=== PATIENT | male | born 1955 | race Caucasian/White ===

== ENCOUNTER 2024-12-03 01:18 | Emergency (ER) | payer MEDICARE, SELFPAY ==
[2024-12-03 01:20] VITALS: BP 142/65; PULSE 59; RESP 16; TEMP 36.4; O2SAT 97; BMI 34.9
--- NOTE | 2024-12-03 01:22 | EDS_ITS ---
HPI History of Present Illness Chief Complaint: Chest Pain PFS PFS Medical History no medical history Allergy/AdvReac Type Severity Reaction Status Date / Time No Known Allergies Allergy Verified 12/03/24 01:20 Family History no significant family his Surgical History no surgical history Social History Smoking Status: Never smoker EXAM Physical Exam Const Vital Signs: 12/03/24 01:20 12/03/24 01:28 12/03/24 01:40 Temperature 97.6 F L Temperature Source Oral Pulse Rate 59 L Respiratory Rate 16 Respiratory Effort Normal Non-Labored Blood Pressure 142/65 H Blood Pressure Mean 90 Pulse Ox 97 96 Oxygen Delivery Method Room Air Room Air 12/03/24 01:54 12/03/24 03:00 12/03/24 04:00 Temperature Temperature Source Pulse Rate 63 55 L 57 L Respiratory Rate 18 16 16 Respiratory Effort Blood Pressure 135/64 H 124/61 H 121/84 H Blood Pressure Mean 87 82 96 Pulse Ox 96 98 98 Oxygen Delivery Method Room Air Room Air Room Air 12/03/24 04:43 Temperature 98.1 F Temperature Source Pulse Rate 57 L Respiratory Rate 16 Respiratory Effort Blood Pressure 134/67 H Blood Pressure Mean 89 Pulse Ox 99 Oxygen Delivery Method Heart Score History: Slightly/Non-Suspicious ECG: Nonspecific Repolarization Age: >/= 65 years Risk Factors: >/= 3 Risk Factors or History of CAD Troponin: </= Normal Limit Score: 5 MDM MDM MDM Narrative Medical decision making narrative: HISTORY OF PRESENT ILLNESS: Chief complaint: Chest pain 69-year-old male with past medical history significant for hyperlipidemia, type II diabetes, hypertension, SHERRON on CPAP presents with chest pain. He states his pressure/sharp. Notes it awoke him from sleep. It is not burning ripping or tearing. Notes it lasted for approximately 5 to 10 minutes then resolved. No chest pain at this time. He notes associated dizziness, nausea but denies associated shortness of breath. Denies recent leg swelling. Denies any exertional chest pain or decreased exercise tolerance recently. Denies unilateral leg swelling. Denies any other PE risk factors (the patient denies recent surgery in the last 4 weeks or immobilization in the last 3 days, denies previous diagnosis of DVT or PE, hemoptysis, unilateral leg swelling or maligna ncy with treatment the last 6 months or palliative. No estrogen use noted.). Patient denies sudden onset of pain, no tearing sensation, no migratory symptoms, no new numbness, weakness or loss of sensation. Patient denies family history or personal history of Connective tissue disorders (Marfan's Syndrome, Julia Danlos etc). Denies recent cough fever chills. Denies recent bleeding diathesis. Denies abdominal pain. REVIEW OF SYSTEMS: Pertinent positives: Chest pain Pertinent negatives: As per HPI PHYSICAL EXAM: Nursing triage notes reviewed, Vital signs reviewed Constitutional: please see [facility] HENT: MMM Eyes: Pupils equal round and reactive to light, Extraocular muscles intact Neck: No stridor, no JVD, full neck ROM Lungs: Clear to auscultation, No wheezing or rales. No increased work of breathing, no conversational dyspnea, no accessory muscle use, no nasal flaring. No respiratory distress noted Heart: Regular rate and rhythm, No murmurs, No rubs and No gallops, 2+ distal pulses (radial, femoral, posterior tibial) in all extremities Abdomen: Soft, there is no tenderness, rigidity, rebound or guarding, no obvious peritoneal signs, no palpable pulsatile abdominal masses, no auscultated abdominal bruit : No CVAT Extremities: No edema Neuro: No new focal neurological deficits, cranial nerves II through XII intact, 5/5 strength in all present extremities. Intact sensation to light touch in all present extremities, 2+ reflexes bilateral patella tendons. Skin: No rash or lesions noted MEDICAL DECISION MAKING: Chief Complaint: please see HPI External records reviewed: No records noted in [facility]. Reviewed Clinisync Factors affecting care: as per [facility] Social determinants of health: none History obtained from others: EMS Consults: none [facility] Narrative: Patient was initially hemodynamically stable, afebrile and nontoxic-appearing. No focal cardiopulmonary abnormalities. No stigmata of VTE or aortic dissection initial exam. I considered the following differential diagnosis: ACS, arrhythmia, anemia, GI etiology, pneumothorax, pericarditis, PE, aortic dissection I obtained a broad lab and imaging work to further determine if the patient was suffering from a life-threatening etiology. Patient received aspirin per EMS. ALL IMAGES (IF OBTAINED) HAVE BEEN PERSONALLY REVIEWED AND INTERPRETED BY MYSELF. EKG with sinus bradycardia rate 59, left axis deviation, normal intervals, no STEMI I have personally reviewed the patient's chest x-ray. Chest x-ray is unremarkable for pulmonary edema, pneumothorax, pneumonia or focal cardiopulmo nary abnormality. No sign of free air under the diaphragm suggest ruptured viscus. High-sensitivity troponin is negative, no evidence of myocardial ischemia CBC without leukocytosis, severe anemia, no thrombocytopenia. BMP without evidence of significant electrolyte abnormalities, no anion gap, no acute kidney injury. Delta troponin negative essentially ruling out ACS per [facility] high-sensitivity troponin protocol On re-evaluation patient remains chest pain-free. Remains hemodynamically stable. Etiology uncertain however with 2 negative high-sensitivity troponins and likely is ACS is less likely. Patient's risk is relatively high given advanced age, diabetes, hypertension and hyperlipidemia. Heart score 5. Discussed risk and benefits/had a shared decision-making discussion with the patient. Discussed risk and benefit of hospitalization versus discharge with close outpatient follow-up. Patient was alert and orient x 3 and had capacity to make his own medical decisions and chose to forego admission at this time and lieu of discharge with close PCP follow-up for outpatient stress test. I considered VTE, aortic dissection patient history and physical exam not consistent with PE or aortic dissection. Strict return precautions were discussed. Daily baby aspirin initiation was discussed. The patient and/or family, caregivers express understanding. The patient and/or family, caregivers agrees with the plan. Shared decision making: I will have a discussion with the patient and or visitors regarding risk/benefits of further testing or admission. They will be made aware of of the risk/benefits inherent in this decision they will be given the opportunity to voice understanding. Total critical care time today provided was at least 0 minutes. This excludes separately billable procedures. Critical care time (if documented) is secondary to the patient having high probability of clinically significant/life threatening deterioration in the patient's condition which required my urgent intervention. Impression: 1. Chest pain 2. History of type 2 diabetes 3. History of hyperlipidemia Dispo: discharge home This note was generated with [employer] dictation software. It may contain incorrect words, spelling, and punctuation that were not noted in review of the chart prior to signing. Lab Data Labs: Laboratory Results - last 24 hr 12/03/24 12/03/24 01:00 03:10 WBC 8.2 RBC 4.71 Hgb 15.2 Hct 44.7 MCV 94.9 H MCH 32.3 H MCHC 34.0 RDW Std Deviation 45.3 H RDW Coeff of Walt 13.0 Plt Count 256 MPV 10.3 Immature Gran % (Auto) 0.600 Neut % (Auto) 49.0 Lymph % (Auto) 37.2 Carson % (Auto) 9.2 Eos % (Auto) 3.3 Baso % (Auto) 0.7 Absolute Neuts (auto) 4.0 Absolute Lymphs (auto) 3.04 Nucleated RBC % 0 Sodium 139 Potassium 4.2 Chloride 103 Carbon Dioxide 24.9 Anion Gap 11 BUN 14 Creatinine 1.00 Estim Creat Clear Calc 93.24 Est GFR (MDRD) Non-Af 82 BUN/Creatinine Ratio 14.3 Glucose 127 H Calcium 9.8 Troponin T High Sens 8 Troponin T Hi Sens 2 Hr 9 Radiography Diagnostic Testing: Clinical Impression(s) from Imaging Studies Chest X-Ray 12/03/24 01:50 IMPRESSION: Mild bilateral basilar atelectatic pulmonary changes. Reading Location: [place] [address] Discharge Plan Triage Chief Complaint: Chest Pain ED Provider: Jax Esteban Dx/Rx/DC Orders Instructions: ED Chest Pain, Uncertain Cause Primary Care Provider: Ricky Medellin Referrals: Ricky Medellin MD [Primary Care Provider] - Activity Restrictions/Additional Instructions: Thank you for trusting us with your care today! Your labs and imaging studies are reassuring. Specifically your high- sensitivity troponin levels were negative x 2. Please begin taking a baby aspirin (81 mg) Please return to the emergency department if your symptoms change or worsen. Please follow with your primary care physician for further outpatient evaluation and management. Specifically for outpatient stress test and echocardiogram. Print Language: Swiss Disposition Disposition: Home, Self Care Discharge Date/Time: 12/03/24 04:44
[2024-12-03 01:40] VITALS: O2SAT 96
--- NOTE | 2024-12-03 01:40 | EKG12_ITS ---
Test Reason : CP Blood Pressure : */* mmHG Vent. Rate : 59 BPM Atrial Rate : 59 BPM P-R Int : 142 ms QRS Dur : 84 ms QT Int : 414 ms P-R-T Axes : 24 -21 -7 degrees QTcB Int : 409 ms Sinus bradycardia Otherwise normal ECG Confirmed by SANTHOSH MOHAMUD ([id number]), editor continuity and script MICHAEL BAIRD ([id number]) on 12/08/2024 6:33:00 AM Referred By: BRIGIDA Confirmed By: SANTHOSH MOHAMUD
--- NOTE | 2024-12-03 01:50 | RAD_ITS ---
PROCEDURE: CHEST 1 VIEW (PORTABLE) 12/03/2024 REASON FOR EXAM: CHEST PAIN TECHNIQUE: Frontal view of the chest. COMPARISON: None. FINDINGS: Mild bilateral basilar atelectatic pulmonary changes. There is no demonstrated pleural abnormality. Normal heart and pericardium. Normal mediastinum and tra. Normal visualized pulmonary arteries. Normal visualized aortic arch and descending thoracic aorta. Normal visualized thoracic spine. Normal visualized ribs, clavicles, and shoulders. There is no demonstrated abnormality of the visualized soft tissue structures of the upper abdomen. RAD/Chest 1 View (Portable) IMPRESSION: Mild bilateral basilar atelectatic pulmonary changes. Reading [facility]
[2024-12-03 01:54] VITALS: BP 135/64; PULSE 63; RESP 18; O2SAT 96
[2024-12-03 01:54] LABS: Hematocrit 44.7 % (40-54); Hemoglobin 15.2 g/dL (13.0-16.5); Immature Granulocytes Count 0.050 X10^3/uL (0.0-0.0); Mean Corp Hgb Conc 34.0 g/dL (32-36); Mean Corpuscular Volume 94.9 fL (80-94); Mean Platelet Vol. 10.3 fl (6.2-12.0); NRBC Flagged by Analyzer 0 % (0-5); Platelet Count 256 K/mm3 (150-450); RBC Distribution Width CV 13.0 % (11.6-14.6); RBC Distribution Width SD 45.3 fl (35.1-43.9); Red Blood Count 4.71 M/mm3 (4.6-6.2); White Blood Count 8.2 K/mm3 (4.4-11.0)
[2024-12-03 02:21] LABS: Anion Gap 11 (5-15); BUN 14 mg/dL (4-19); BUN/Creat Ratio 14.3 RATIO (10-20); Calcium,Total 9.8 mg/dL (7.6-11.0); Carbon Dioxide 24.9 mmol/L (21.0-32.0); Chloride 103 mmol/L (98-108); Estimated Creatinine Clearance 93.24 ml/min (50-250); Glucose 127 mg/dL (70-99); Potassium 4.2 mmol/L (3.3-5.1); Troponin T High Sensitivity 8 ng/L (<=22)
[2024-12-03 03:00] VITALS: BP 124/61; PULSE 55; RESP 16; O2SAT 98
[2024-12-03 04:00] VITALS: BP 121/84; PULSE 57; RESP 16; O2SAT 98
[2024-12-03 04:21] LABS: Troponin T High Sens 2 HR 9 ng/L (<=22)
[2024-12-03 04:43] VITALS: BP 134/67; PULSE 57; RESP 16; TEMP 36.7; O2SAT 99
== END 2024-12-03 04:44 | disposition home or self-care (01) ==
PROVIDERS: Emergency Provider Emergency Medicine; PCP Family Medicine; Visit Provider Emergency Medicine
DX: R07.9 Chest pain, unspecified (principal); E11.9 Type 2 diabetes mellitus without complications; E78.5 Hyperlipidemia, unspecified; Z99.89 Dependence on other enabling machines and devices; I10 Essential (primary) hypertension; G47.33 Obstructive sleep apnea (adult) (pediatric)
CPT/HCPCS: 71045; 80048; 84484; 85025; 93005; 99285